=== PATIENT | male | born 2000 | race Caucasian/White ===

== ENCOUNTER 2019-01-08 01:05 | Emergency (ER) | payer BC ==
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
== END 2019-01-08 02:52 | disposition home or self-care (01) ==
LOC: ERS 01:05
DX: S01.412A Laceration without foreign body of left cheek and temporomandibular area, initial encounter (principal); F90.9 Attention-deficit hyperactivity disorder, unspecified type; F91.3 Oppositional defiant disorder; Y04.0XXA Assault by unarmed brawl or fight, initial encounter
CPT/HCPCS: 12011; 70450; 70486